=== PATIENT | male | born 1935 | race Native Hawaiian/Other Pacific Islander ===

== ENCOUNTER 2018-07-31 02:11 | Emergency (ER) | payer OTHER ==
[~2018-07-31] VITALS: Ht 165.1 cm; Wt 1045.5 kg
[2018-07-31 02:25] VITALS: TEMP 97.7
[2018-07-31 02:54] LABS: PLATELET COUNT 214 K/uL (142-355)
[2018-07-31 07:05] VITALS: BP 181/78
== END 2018-07-31 07:05 | disposition home or self-care (01) ==
LOC: ED 02:11
DX: R10.12 Left upper quadrant pain (principal); R10.32 Left lower quadrant pain; N28.1 Cyst of kidney, acquired; K57.90 Diverticulosis of intestine, part unspecified, without perforation or abscess without bleeding
CPT/HCPCS: 36415; 80053; 81000; 85027; 96374; 96376; 99284; J1885